=== PATIENT | female | born 1985 | race Caucasian/White ===

== ENCOUNTER 2016-10-13 19:20 | Emergency (ER) | payer MEDICAID ==
--- NOTE | 2016-10-13 19:33 | ER Document Report ---
ED Medical Screen (RME) - General Stated Complaint: VOMITING, DIARRHEA Time seen by provider: 19:33 Mode of Arrival: Ambulatory Information source: Patient Notes: 31-year-old female 14 weeks , has had a normal without any vomiting in her second trimester developed nausea and vomiting since Saturday. Diarrhea started Saturday and has continued today. She feels like her stomach is very sour. There is no vaginal bleeding. No fever. No one else is sick in the family. I have greeted and performed a rapid initial assessment of this patient. A comprehensive ED assessment, evaluation of the patient, analysis of test results , and completion of the medical decision making process will be contacted by additional ED providers. TRAVEL OUTSIDE OF THE [place] IN LAST 30 DAYS: No - Related Data Allergies/Adverse Reactions: No Known Allergies Allergy (Verified 10/13/16 19:38) Past Medical History Past Surgical History: Reports: Hx Breast Surgery - Breast augmentation Physical Exam - Vital signs Vitals: Temp Pulse Resp BP Pulse Ox 98.2 F 88 20 130/84 H 98 10/13/16 19:28 10/13/16 19:28 10/13/16 19:28 10/13/16 19:28 10/13/16 19:28 Course - Vital Signs Vital signs: Temp Pulse Resp BP Pulse Ox 98.2 F 88 20 130/84 H 98 10/13/16 19:28 10/13/16 19:28 10/13/16 19:28 10/13/16 19:28 10/13/16 19:28
[2016-10-13] MEDS ORDERED: NORMAL SALINE 1000 ML 2,000 ML IV ONE (19:37)
[2016-10-13 20:02] LABS: ABSOLUTE BASOPHILS # (AUTO) 0.1 10^3/uL (0.0-0.2); ABSOLUTE EOSINOPHILS # (AUTO) 0.1 10^3/uL (0.0-0.6); ABSOLUTE LYMPHOCYTES (AUTO) 3.3 10^3/uL (0.5-4.7); ABSOLUTE MONOCYTES (AUTO) 0.7 10^3/uL (0.1-1.4); ABSOLUTE NEUT (AUTO) 10.9 10^3/uL (1.7-8.2); BASOPHILS % (AUTO) 0.5 % (0-2); EOSINOPHILS % (AUTO) 0.9 % (0-6); HEMATOCRIT 42.5 % (36.0-47.0); HEMOGLOBIN 14.3 g/dL (12.0-15.5); HGB HCT DIFFERENCE 0.4; LYMPHOCYTES % (AUTO) 21.6 % (13-45); MEAN CORPUSCULAR HEMOGLOBIN 31.9 pg (27.0-33.4); MEAN CORPUSCULAR HGB CONC 33.8 g/dL (32.0-36.0); MEAN CORPUSCULAR VOLUME 94 fl (80-97); MONOCYTES % (AUTO) 4.6 % (3-13); RED CELL DISTRIBUTION WIDTH 12.7 % (11.5-14.0); SEGMENTED NEUTROPHILS % (AUTO) 72.4 % (42-78); WHITE BLOOD COUNT 15.1 10^3/uL (4.0-10.5)
[2016-10-13 20:18] LABS: ALANINE AMINOTRANSFERASE 33 U/L (9-52); ALBUMIN 4.7 g/dL (3.5-5.0); ALKALINE PHOSPHATASE 82 U/L (38-126); ANION GAP 14 (5-19); ASPARTATE AMINO TRANSFERASE 22 U/L (14-36); BILIRUBIN,TOTAL 0.9 mg/dL (0.2-1.3); BLOOD UREA NITROGEN 16 mg/dL (7-20); CALCIUM 10.6 mg/dL (8.4-10.2); CARBON DIOXIDE 22 mmol/L (22-30); CHLORIDE 102 mmol/L (98-107); CREATININE RESULT 0.65 mg/dL (0.52-1.25); GLUCOSE 88 mg/dL (75-110); LIPASE 67.8 U/L (23-300); POTASSIUM 4.3 mmol/L (3.6-5.0); SODIUM 137.9 mmol/L (137-145); TOTAL PROTEIN 7.6 g/dL (6.3-8.2)
[2016-10-13 20:31] LABS: APPEARANCE,URINE SLIGHTLY-CLOUDY; BILIRUBIN,URINE NEGATIVE (NEGATIVE); GLUCOSE, URINE NEGATIVE (NEGATIVE); KETONES,URINE 80 mg/dL (NEGATIVE); LEUKOCYTE ESTERASE,URINE NEGATIVE (NEGATIVE); NITRITE,URINE NEGATIVE (NEGATIVE); PROTEIN,URINE 30 mg/dL (NEGATIVE); URINE SPECIFIC GRAVITY 1.025; UROBILINOGEN,URINE NEGATIVE mg/dL (<2.0)
--- NOTE | 2016-10-13 21:20 | ER Document Report ---
ED GI/ - General Mode of Arrival: Ambulatory Information source: Patient, Relative - TRAVEL OUTSIDE OF THE [place] IN LAST 30 DAYS: No - HPI Patient complains to provider of: Vomiting Associated symptoms: Other - See above <JAIMIE AGUILAR - Last Filed: 10/13/16 21:28> <COURTNEY MELO - Last Filed: 10/14/16 00:39> - General Chief Complaint: Nausea/Vomiting/Diarrhea Stated Complaint: VOMITING, DIARRHEA Notes: Patient is a 31 year old female, at 14 weeks , who presents to the emergency department complaining of vomiting onset 6 days ago. Patient states that she has felt fine this entire up until this past week and has been unable to keep any food down. Patient also complains of nausea, upper abdominal pain, less frequent urination, headache, and diarrhea occurring 3x per day. Patient denies vaginal bleeding, vaginal discharge, burning while urinating, cough, rhinorrhea, fever, and sore throat. Patient reports they received an initial ultrasound and all was normal, her due date is around April 12. Per patient was never this sick with her previous pregnancies. ObGyn: [email or web address] (JAIMIE AGUILAR) - Related Data Allergies/Adverse Reactions: No Known Allergies Allergy (Verified 10/13/16 19:38) Past Medical History - General Information source: Patient - Social History Smoking Status: Never Smoker Family History: Reviewed & Not Pertinent Past Surgical History: Reports: Hx Breast Surgery - Breast augmentation <JAIMIE AGUILAR - Last Filed: 10/13/16 21:28> Review of Systems - Review of Systems Constitutional: denies: Fever EENT: denies: Nose discharge, Throat pain Cardiovascular: No symptoms reported Respiratory: denies: Cough Gastrointestinal: See HPI, Abdominal pain, Diarrhea, Nausea, Vomiting Genitourinary: See HPI, Retention. denies: Burning Female Genitourinary: denies: Vaginal discharge, Vaginal bleeding Musculoskeletal: No symptoms reported Skin: No symptoms reported Hematologic/Lymphatic: No symptoms reported Neurological/Psychological: See HPI, Headaches -: Yes All other systems reviewed and negative <JAIMIE AGIULAR - Last Filed: 10/13/16 21:28> Physical Exam - Vital signs Interpretation: Normal - General General appearance: Appears well, Alert - HEENT Head: Normocephalic, Atraumatic - Respiratory Respiratory status: No respiratory distress Chest status: Nontender Breath sounds: Normal Chest palpation: Normal - Cardiovascular Rhythm: Regular Heart sounds: Normal auscultation Murmur: No - Abdominal Inspection: Normal Distension: No distension Bowel sounds: Normal Tenderness: Nontender Organomegaly: No organomegaly - Extremities General upper extremity: Normal inspection General lower extremity: Normal inspection. No: Edema - Neurological Neuro grossly intact: Yes Cognition: Normal Orientation: AAOx4 Yoandy Coma Scale Eye Opening: Spontaneous Yoandy Coma Scale Verbal: Oriented Yoandy Coma Scale Motor: Obeys Commands Vincent Coma Scale Total: 15 Speech: Normal - Psychological Associated symptoms: Normal affect, Normal mood - Skin Skin Temperature: Warm Skin Moisture: Dry Skin Color: Normal <JAIMIE AGUILAR - Last Filed: 10/13/16 21:28> Course - Laboratory Result Diagrams: 10/13/16 19:45 10/13/16 19:45 <JAIMIE AGUILAR - Last Filed: 10/13/16 21:28> - Laboratory Result Diagrams: 10/13/16 19:45 10/13/16 19:45 <COURTNEY MELO - Last Filed: 10/14/16 00:39> - Re-evaluation Re-evalutation: 10/13/16 21:23 Patient is EGA 14 weeks by ultrasound with nausea and vomiting for the past week unable to keep anything down also with a headache now. Patient's denies any fevers chills or sweats. No cough cold or flulike symptoms. On exam, patient alert and oriented in no acute distress, vital signs are stable patient is afebrile nontoxic appearing. Abdomen is soft and nontender. Urine shows high ketones. Plan to give IV fluids and nausea medication. We'll by mouth challenge after Zofran. 10/13/16 23:20 Nurses were unable to get heart tones and so I took the bedside ultrasound and was able to identify the fetus. heart rate 140, plenty of movement. This is an unofficial ultrasound only to document heart tone. Patient continues to have nausea and has vomited after drinking some water in the ED. Give her Reglan and Benadryl. Pt is getting her second liter of fluids - will reassess. 10/13/16 23:25 10/13/16 23:39 10/14/16 00:29 So far the patient is tolerating the fluids that I just gave her. We're finishing the second bag of fluids and plan will be for her to be discharged home. (COURTNEY MELO) - Vital Signs Vital signs: Temp Pulse Resp BP Pulse Ox 98.2 F 88 20 130/84 H 98 10/13/16 19:28 10/13/16 19:28 10/13/16 19:28 10/13/16 19:28 10/13/16 19:28 (JAIMIE AGUILAR) (COURTNEY MELO) - Laboratory Laboratory results interpreted by me: 10/13/16 10/13/16 10/13/16 19:45 19:45 19:45 WBC 15.1 H Absolute Neutrophils 10.9 H Calcium 10.6 H Urine Protein 30 H Urine Ketones 80 H (JAIMIE AGUILAR) (COURTNEY MELO) Discharge <JAIMIE AGUILAR - Last Filed: 10/13/16 21:28> <COURTNEY MELO - Last Filed: 10/14/16 00:39> - Discharge Clinical Impression: Hyperemesis gravidarum Condition: Stable Disposition: HOME, SELF-CARE Instructions: Vomiting ([facility]) Additional Instructions: Drink plenty fluids to stay well hydrated. Nausea medication as needed. Call your OB tomorrow and follow-up on Saturday. Return for fevers, vomiting so you can 't keep down fluids, or other worsening or concerning symptoms. Prescriptions: Metoclopramide HCl [Reglan 10 mg Tablet] 1 tab PO ASDIR PRN #25 tablet PRN Reason: Ondansetron [Zofran Odt 4 mg Tablet] 1 - 2 tab PO Q4H PRN #15 tab.rapdis PRN Reason: For Nausea/Vomiting Scribe Attestation: 10/13/16 23:40 I personally performed the services described in the documentation, reviewed and edited the documentation which was dictated to the scribe in my presence, and it accurately records my words and actions. (COURTNEY MELO) Scribe Documentation - Scribe Written by Scribe:: ioana Walsh, 10/13/16, [id number] acting as scribe for :: Bella <JAIMIE AGUILAR - Last Filed: 10/13/16 21:28>
[2016-10-13] MEDS ORDERED: ONDANSETRON HCL INJ/PF 4 MG/2 ML SDV IV ONE (21:22)
[2016-10-13] MEDS ORDERED: METOCLOPRAMIDE HCL INJ/PF 10 MG/2 ML SDV ONE (23:09)
[2016-10-13] MEDS ORDERED: DIPHENHYDRAMINE HCL 50 MG/ML VIAL ONE (23:10)
[2016-10-13] MEDS ORDERED: METOCLOPRAMIDE HCL INJ/PF 10 MG/2 ML SDV IV ONE (23:22)
[2016-10-13] MEDS ORDERED: DIPHENHYDRAMINE HCL 50 MG/ML VIAL IV ONE (23:23)
[2016-10-14] MEDS ORDERED: ONDANSETRON ODT 4 MG TAB (6 TAB/DSPK) PO PRN (00:26)
[2016-10-14 01:13] VITALS: BP 105/52
== END 2016-10-14 01:13 | disposition home or self-care (01) ==
LOC: ER 19:20
DX: O21.0 Mild hyperemesis gravidarum (principal); O26.892 Other specified pregnancy related conditions, second trimester; R10.10 Upper abdominal pain, unspecified; R51 Headache; R33.9 Retention of urine, unspecified; R19.7 Diarrhea, unspecified; Z3A.14 14 weeks gestation of pregnancy
CPT/HCPCS: 99283; 96361; 96374; 96375; 36415; 87086; 83690; 85025; 80053; 81001; J1200; J2765; J2405; J7030

== ENCOUNTER 2017-01-18 14:11 | Outpatient (CLI) | payer MEDICAID ==
[2017-01-18 15:22] LABS: APPEARANCE,URINE CLEAR; BILIRUBIN,URINE NEGATIVE (NEGATIVE); GLUCOSE, URINE NEGATIVE (NEGATIVE); KETONES,URINE NEGATIVE (NEGATIVE); LEUKOCYTE ESTERASE,URINE NEGATIVE (NEGATIVE); NITRITE,URINE NEGATIVE (NEGATIVE); PROTEIN,URINE NEGATIVE (NEGATIVE); URINE SPECIFIC GRAVITY 1.003; UROBILINOGEN,URINE NEGATIVE mg/dL (<2.0)
[2017-01-18 15:37] LABS: URINE BARBITURATES SCREEN NEGATIVE; URINE METHADONE SCREEN NEGATIVE; URINE OPIATES LOW NEGATIVE; URINE PHENCYCLIDINE SCREEN NEGATIVE
[2017-01-18 15:40] LABS: ABSOLUTE BASOPHILS # (AUTO) 0.1 10^3/uL (0.0-0.2); ABSOLUTE EOSINOPHILS # (AUTO) 0.2 10^3/uL (0.0-0.6); ABSOLUTE LYMPHOCYTES (AUTO) 2.5 10^3/uL (0.5-4.7); ABSOLUTE MONOCYTES (AUTO) 0.9 10^3/uL (0.1-1.4); ABSOLUTE NEUT (AUTO) 12.4 10^3/uL (1.7-8.2); BASOPHILS % (AUTO) 0.4 % (0-2); HEMATOCRIT 36.5 % (36.0-47.0); HEMOGLOBIN 12.1 g/dL (12.0-15.5); HGB HCT DIFFERENCE -0.2; LYMPHOCYTES % (AUTO) 15.8 % (13-45); MEAN CORPUSCULAR HEMOGLOBIN 32.1 pg (27.0-33.4); MEAN CORPUSCULAR HGB CONC 33.2 g/dL (32.0-36.0); MEAN CORPUSCULAR VOLUME 97 fl (80-97); MONOCYTES % (AUTO) 5.4 % (3-13); RED BLOOD COUNT 3.78 10^6/uL (3.72-5.28); RED CELL DISTRIBUTION WIDTH 13.9 % (11.5-14.0); SEGMENTED NEUTROPHILS % (AUTO) 77.4 % (42-78)
[2017-01-18 19:53] LABS: TOTAL RBC COUNT 2034; VOL OF FETOMATERNAL HEMORRHAGE 0 ML (0)
[2017-01-18 19:54] LABS: TYPE IN FILE? TYPE IN FILE
== END 2017-01-18 16:45 | disposition home or self-care (01) ==
LOC: LC 14:11
PROVIDERS: ATTEND Specialist
PROC: 4A1HXCZ Monitoring of Products of Conception, Cardiac Rate, External Approach (ICD-10-PCS; principal; 2017-01-18)
DX: Z36 Encounter for antenatal screening of mother (principal)
CPT/HCPCS: 36415; 76815; 80307; 81001; 85025; 85362; 85384; 85460

== ENCOUNTER 2017-03-08 15:36 | Outpatient (CLI) | payer MEDICAID ==
--- NOTE | 2017-03-08 16:23 | Non Stress Test Report ---
Non Stress Test Datetime Report Generated by CPN: 03/08/2017 16:23 DEMOGRAPHIC EGA NST: 35.0 INDICATION Indication for Study: Decreased Movement; Ordered by Provider MONITORING Monitor Explained: Monitor Explained; Test Explained; Patient Verbalized Understanding Time on Monitor: 03/08/2017 15:55 Time off Monitor: 03/08/2017 16:20 NST Duration: 25 NST INTERVENTIONS NST Interventions: PO Hydration; Reposition Patient Physician Notified NST: H Kalyan CNM BABY A: [id number] BABY A Movement : Present Contraction Frequency : occassional FHR Baseline : 130 Accelerations : 15X15 Decelerations : None Variability : Moderate 6-25bpm NST Review: Meets Criteria for Reactive NST NST Review and Verified By : Ej Carvajal RN NST Results: Reactive NST REPORT Report Trigger: Send Report
== END 2017-03-08 16:31 | disposition home or self-care (01) ==
LOC: LC 15:36
PROVIDERS: ATTEND Student in an Organized Health Care Education/Training Program
PROC: 4A1HXCZ Monitoring of Products of Conception, Cardiac Rate, External Approach (ICD-10-PCS; principal; 2017-03-08)
DX: O36.8130 Decreased fetal movements, third trimester, not applicable or unspecified (principal); Z3A.35 35 weeks gestation of pregnancy
CPT/HCPCS: 59025

== ENCOUNTER 2017-04-06 02:33 | Inpatient (IN) | payer MEDICAID ==
[2017-04-06] MEDS ORDERED: DINOPROSTONE 10 MG VAGINAL INSERT.SR PV PRN (02:48)
[2017-04-06] MEDS ORDERED: PENICILLIN G-K 5 MILLION UNIT VIAL IV PRN (03:20)
[2017-04-06] MEDS ORDERED: RINGERS SOLUTION,LACTATED 300 ML IV ONE (03:30)
[2017-04-06] MEDS ORDERED: PENICILLIN G POTASSIUM 5,000,000 UNIT in DEXTROSE 5%-WATER 100 ML IV ONE (03:30)
[2017-04-06 03:50] LABS: APPEARANCE,URINE CLEAR; BILIRUBIN,URINE NEGATIVE (NEGATIVE); GLUCOSE, URINE NEGATIVE (NEGATIVE); KETONES,URINE TRACE mg/dL (NEGATIVE); LEUKOCYTE ESTERASE,URINE NEGATIVE (NEGATIVE); NITRITE,URINE NEGATIVE (NEGATIVE); PROTEIN,URINE NEGATIVE (NEGATIVE); URINE SPECIFIC GRAVITY 1.004; UROBILINOGEN,URINE NEGATIVE mg/dL (<2.0)
[2017-04-06] MEDS: RINGERS SOLUTION,LACTATED 1,000 ML IV PRN (03:52)
[2017-04-06 03:54] LABS: ABSOLUTE BASOPHILS # (AUTO) 0.1 10^3/uL (0.0-0.2); ABSOLUTE EOSINOPHILS # (AUTO) 0.1 10^3/uL (0.0-0.6); ABSOLUTE LYMPHOCYTES (AUTO) 3.4 10^3/uL (0.5-4.7); ABSOLUTE MONOCYTES (AUTO) 0.7 10^3/uL (0.1-1.4); ABSOLUTE NEUT (AUTO) 8.4 10^3/uL (1.7-8.2); BASOPHILS % (AUTO) 0.4 % (0-2); EOSINOPHILS % (AUTO) 0.9 % (0-6); HEMATOCRIT 38.2 % (36.0-47.0); HEMOGLOBIN 12.8 g/dL (12.0-15.5); HGB HCT DIFFERENCE 0.2; LYMPHOCYTES % (AUTO) 26.9 % (13-45); MEAN CORPUSCULAR HEMOGLOBIN 32.5 pg (27.0-33.4); MEAN CORPUSCULAR HGB CONC 33.4 g/dL (32.0-36.0); MEAN CORPUSCULAR VOLUME 97 fl (80-97); MONOCYTES % (AUTO) 5.7 % (3-13); RED BLOOD COUNT 3.93 10^6/uL (3.72-5.28); RED CELL DISTRIBUTION WIDTH 13.9 % (11.5-14.0); SEGMENTED NEUTROPHILS % (AUTO) 66.1 % (42-78); WHITE BLOOD COUNT 12.6 10^3/uL (4.0-10.5)
[2017-04-06] MEDS ORDERED: DINOPROSTONE 10 MG VAGINAL INSERT.SR ONE (03:57)
[2017-04-06 04:06] LABS: URINE BARBITURATES SCREEN NEGATIVE; URINE METHADONE SCREEN NEGATIVE; URINE OPIATES LOW NEGATIVE; URINE PHENCYCLIDINE SCREEN NEGATIVE
[2017-04-06] MEDS ORDERED: ZOLPIDEM TARTRATE 5 MG TABLET ONE (04:11)
[2017-04-06] MEDS ORDERED: ZOLPIDEM TARTRATE 5 MG TABLET PO ONE (04:30)
[2017-04-06] MEDS ORDERED: PENICILLIN G POTASSIUM 2,500,000 UNIT in DEXTROSE 5%-WATER 50 ML IV SCH (08:00)
[2017-04-06] MEDS ORDERED: MISOPROSTOL 0.1 MG TABLET ONE (08:23)
[2017-04-06] MEDS ORDERED: OXYTOCIN/NORMAL SALINE 20 UNIT/1,000 ML RTUINJ ONE (13:59)
[2017-04-06] MEDS: OXYTOCIN/NORMAL SALINE 20 UNIT/1,000 ML RTUINJ IV PRN (14:14)
[2017-04-06] MEDS ORDERED: PENICILLIN G-K 5 MILLION UNIT VIAL ONE (14:52)
[2017-04-06] MEDS ORDERED: LIDOCAINE 1% INJ-PF (10 MG/ML) 30 ML SDV ONE (17:22)
[2017-04-06] MEDS ORDERED: MISOPROSTOL 0.2 MG TABLET ONE (17:22)
[2017-04-06] MEDS ORDERED: ACETAMINOPHEN WITH CODEINE #3 TABLET ONE (17:58)
[2017-04-06] MEDS ORDERED: MEASLES,MUMPS&RUBELLA VACC/PF 0.5 ML VIAL SUBCUT PRN (18:15)
[2017-04-06] MEDS ORDERED: ACETAMINOPHEN WITH CODEINE #3 TABLET PO PRN (18:15)
[2017-04-06] MEDS ORDERED: DIBUCAINE 1% OINTMENT 28 GM TP PRN (18:15)
[2017-04-06] MEDS ORDERED: DIPH/PERTUSS(ACELL)/TETANUS VAC/PF 0.5 ML SYR (>=10YO) IM PRN (18:15)
[2017-04-06] MEDS ORDERED: BENZOCAINE/MENTHOL AEROSOL SPRAY 56 ML TOP PRN (18:15)
[2017-04-06] MEDS ORDERED: OXYTOCIN/NORMAL SALINE 20 UNIT/1,000 ML RTUINJ IV PRN (18:15)
[2017-04-06] MEDS ORDERED: ZOLPIDEM TARTRATE 5 MG TABLET PO PRN (18:15)
--- NOTE | 2017-04-06 20:33 | Admission Physical ---
Datetime Report Generated by CPN: 04/06/2017 20:33 CURRENT ADMISSION Chief Complaint: Scheduled Induction of Labor Indication for Induction- Other: gdm on glyburide Admit Plan: Admit to Unit; Initiate Labor Induction Protocol ALLERGIES Medication Allergies: No Medication Allergies: No Known Allergies (04/06/2017) Medication Allergies: No Known Allergies (10/13/2016) Latex: No Latex Allergies OBSTETRICAL HISTORY EDC: 04/12/2017 00:00 : 4 Para: 2 Term: 2 : 0 SAB: 1 IAB: 0 Ectopic: 0 Livin Cesareans: 0 VBACs: 0 Multiple Births: 0 Gestational Diabetes: Yes Rh Sensitization: No Incompetent Cervix: No SHAHRAM: No Infertility: No ART Treatment: No Uterine Anomaly: No IUGR: No Hx Previous C/S: No Macrosomia: Yes Hx Loss/Stillborn: No PIH: No Hx : No Placenta Previa/Abruption: No Depression/PP Depression: No PTL/PROM: No Post Hemorrhage: No Current Procedures: Ultrasound; NST Obstetrical History Comments: G1 - SAB G2 - G3 - 2015 7lb 3oz G4- current - GDM, poly 26.55, macrosomia SEE RECORDS Alcohol: No Marijuana : No Cocaine: No Other Illicit Drugs: No Cigarettes: Never Smoker. [id number] MEDICAL HISTORY Diabetes: No Blood Transfusion: No Pulmonary Disease (Asthma, TB): No Breast Disease: No Hypertension: No Senior Sales Engineer Surgery: No Heart Disease: No Hosp/Surgery: Yes Autoimmune Disorder: No Anesthetic Complications: No Kidney Disease: No Abnormal Pap Smear: No Neuro/Epilepsy: No Psychiatric Disorders: No Other Medical Diseases: No Hepatitis/Liver Disease: No Significant Family History: No Varicosities/Phlebitis: No Trauma/Violence : No Thyroid Dysfunction: No Medical History Comments: deviated septum surgery 2014 INFECTIOUS HISTORY Gonorrhea: No Genital Herpes: No Chlamydia: No Tuberculosis: No Syphilis: No Hepatitis: No HIV/AIDS Exposure: No Rash or Viral Illness: No HPV: Yes PHYSICAL EXAM General: Normal HEENT: Normal Neurologic: Normal Thyroid: Normal Heart: Normal Lungs: Normal Breast: Deferred Back: Normal Abdomen: Normal Genitourinary Exam: Normal Extremities: Normal DTRs: Normal Pelvic Type: Adequate Vital Signs: Reviewed VAGINAL EXAM Dilatation: 1 Effacement: 0 Station: -2 MEMBRANES Pooling: Negative Membranes: Intact FETUS A EGA: 39.1 Monitoring: External US FHR- Baseline: 140 Accelerations: 15X15 FHR Category: Category I Admit Comment: est wt is 4559. shoulder dystocia risk discussed and c section offered and declined by pt. PLANS FOR LABOR AND DELIVERY Labor and Delivery: None Pain Management: Natural Feeding Preference: Breast Benefit of Breast Feed Discussed: Yes Circumcision: Yes INFORMED CONSENT Signature: with User ID: [email or web address]
[2017-04-06] MEDS: PENICILLIN G-K 5 MILLION UNIT VIAL IV SCH (21:02)
[2017-04-06] MEDS: IBUPROFEN 800 MG TABLET PO SCH (21:20)
[2017-04-07] MEDS: PENICILLIN G-K 5 MILLION UNIT VIAL IV SCH ×3 (00:03→09:07)
[2017-04-07] MEDS: IBUPROFEN 800 MG TABLET PO SCH ×3 (05:54→22:52)
[2017-04-07 07:37] LABS: HEMATOCRIT 36.4 % (36.0-47.0); HEMOGLOBIN 12.3 g/dL (12.0-15.5); HGB HCT DIFFERENCE 0.5; MEAN CORPUSCULAR HEMOGLOBIN 32.8 pg (27.0-33.4); MEAN CORPUSCULAR HGB CONC 33.7 g/dL (32.0-36.0); MEAN CORPUSCULAR VOLUME 97 fl (80-97); RED BLOOD COUNT 3.74 10^6/uL (3.72-5.28); RED CELL DISTRIBUTION WIDTH 14.4 % (11.5-14.0); WHITE BLOOD COUNT 14.5 10^3/uL (4.0-10.5)
[2017-04-07] MEDS: FERROUS SULFATE 325 MG TABLET PO SCH ×2 (09:34→17:25)
[2017-04-07] MEDS: ACETAMINOPHEN WITH CODEINE #3 TABLET PO PRN ×3 (09:34→22:57)
[2017-04-07] MEDS: SENNOSIDES/DOCUSATE 8.6-50 MG 1 EACH TABLET PO SCH (09:35)
[2017-04-07] MEDS: DOCUSATE SODIUM 100 MG CAPSULE PO SCH ×2 (09:35→17:25)
[2017-04-07] MEDS: PRENATAL VITAMIN W-O CA NO5/FE FUMARATE/FA CAPSULE PO SCH (09:40)
--- NOTE | 2017-04-07 09:54 | PDOC PROGRESS REPORT ---
Subjective-OB Subjective: Post Delivery Day: 32 year old. Denies any needs at this time Doing well, no c/o, ambulating, , hsb at BS Physical Exam (OB) Vital Signs: Temp Pulse Resp BP Pulse Ox 97.9 F 80 15 113/63 100 04/07/17 08:26 04/07/17 08:26 04/07/17 08:26 04/07/17 08:26 04/07/17 08:26 Intake & Output 04/06/17 04/07/17 04/08/17 06:59 06:59 06:59 Weight 90.15 kg - PIH/Pre-Eclampsia Clonus: Negative - Lochia Lochia Amount: Scant < 10 ml Lochia Color: Rubra/Red - Abdomen Description: Tender Hernia Present: No Fundal Description: Firm, Midline Fundal Height: u/u - u/2 Objective-Diagnostic Laboratory: 04/07/17 07:19 04/07/17 07:19 WBC 14.5 H RBC 3.74 Hgb 12.3 Hct 36.4 MCV 97 MCH 32.8 MCHC 33.7 RDW 14.4 H Plt Count 205 Assessment and Plan(PN) - Assessment and Plan (1) Vaginal delivery Is this a current diagnosis for this admission?: Yes - Time Spent with Patient Time with patient: Less than 15 minutes Medications reviewed and adjusted accordingly: Yes - Disposition Anticipated Discharge: Home Within: within 24 hours
[2017-04-07] MEDS ORDERED: HYDROCORTISONE 1% CREAM 28.35 GM TP PRN (13:14)
[2017-04-08] MEDS: RINGERS SOLUTION,LACTATED 1,000 ML IV PRN (00:21)
[2017-04-08] MEDS: OXYTOCIN/NORMAL SALINE 20 UNIT/1,000 ML RTUINJ IV PRN (00:21)
[2017-04-08] MEDS: IBUPROFEN 800 MG TABLET PO SCH ×2 (05:05→14:16)
--- NOTE | 2017-04-08 08:58 | PDOC DISCHARGE SUMMARY ---
Final Diagnosis Discharge Date: 04/08/17 Discharge Data - Discharge Medication Home Medications: Vit/Iron Fumarate/FA [ Tablet] 1 tab PO DAILY 04/21/16 Docusate Sodium [Colace 100 mg Capsule] 100 mg PO BID #60 capsule 04/08/17 Ibuprofen [Motrin 800 mg Tablet] 800 mg PO Q8 #60 tablet 04/08/17 Gestational Age: 39 Reason(s) for Admission: Induction of Labor, Gestional Diabetes, Other - polyhydramnios Procedures: NST Intrapartum Procedure(s): Spontaneous Vaginal Delivery - Raysal Data Baby 1 Male at 1 minute: 7 at 5 minutes: 8 Weight: 3.799 kg Home with Mother: Yes Complications: No - Diagnosis Test Laboratory: Temp Pulse Resp BP Pulse Ox 97.3 F 73 16 106/60 99 04/08/17 07:23 04/08/17 07:23 04/08/17 07:23 04/08/17 07:23 04/08/17 07:23 04/06/17 04/06/17 04/07/17 02:46 03:28 07:19 RBC 3.93 3.74 Hgb 12.8 12.3 Hct 38.2 36.4 Urine Opiates Screen NEGATIVE - Discharge information/Instructions Discharge Activity: Activity As Tolerated, Pelvic Rest, No tub bath Discharge Diet: Regular Disposition: HOME, SELF-CARE Follow up with: [facility] in: 4, Weeks
[2017-04-08 09:31] VITALS: BP 108/69
[2017-04-08] MEDS: DOCUSATE SODIUM 100 MG CAPSULE PO SCH (10:57)
[2017-04-08] MEDS: FERROUS SULFATE 325 MG TABLET PO SCH (10:57)
[2017-04-08] MEDS: PRENATAL VITAMIN W-O CA NO5/FE FUMARATE/FA CAPSULE PO SCH (10:57)
[2017-04-08] MEDS: SENNOSIDES/DOCUSATE 8.6-50 MG 1 EACH TABLET PO SCH (10:57)
--- NOTE | 2017-04-08 14:14 | Delivery Summary ---
Del Sum A-C Datetime Report Generated by CPN: 04/08/2017 14:14 DELIVERY PERSONNEL DELIVERY PERSONNEL: [phone] DELIVERY PERSONNEL: [phone] Delivery Doctor:: Lucía Alonzo MD Labor and Delivery Nurse:: Renetta Perez RN Nursery Nurse:: Courtney Figueroa RN Nursery Nurse:: Marla Leung RN Additional Personnel: : Padma Hamilton RN MATERNAL INFORMATION Delivery Anesthesia: None Medications After Delivery: Pitocin Bolus-Please Comment Meds After Delivery Comment: Pitocin 20 units in 1000mL NS Estimated Blood Loss (ml): 200 Estimated Blood Loss (ml): 200 Maternal Complications: None LABOR SUMMARY EDC: 04/12/2017 00:00 No. Babies in Womb: 1 Labor Anesthesia: None LABOR INFORMATION Reason for Induction: Maternal Diabetes; Polyhydramnios Onset of Labor: 04/06/2017 16:13 Complete Dilatation: 04/06/2017 17:34 Cervical Ripening Agents: Cytotec @ 50 mcg PO Other Ripening Agents: cervidil/cytotec Oxytocin: Induction Group B Beta Strep: positive Antibiotics # of Doses: 1 Antibiotics Time of Last Dose: 1457 Name of Antibiotic Given: PCN Steroids Given: None Reason Steroids Not Administered: Not Applicable MEMBRANES Membranes Rupture Method: Artificial Rupture of Membranes: 04/06/2017 17:34 Length of Rupture (hr): 0.05 Amniotic Fluid Color: Clear Amniotic Fluid Amount: Moderate STAGES OF LABOR Stage 1 hr: 1 Stage 1 min: 21 Stage 2 hr: 0 Stage 2 min: 3 Stage 3 hr: 0 Stage 3 min: 8 Total Time in Labor hr: 1 Total Time in Labor min: 32 VAGINAL DELIVERY Episiotomy: None Laceration Extension: N/A Laceration Type: None Laceration Repair: Not Applicable BABY A INFORMATION Infant Delivery Date/Time: 04/06/2017 17:37 Method of Delivery: Vaginal Method of Delivery: Vaginal Born in Route : No : N/A Forceps: N/A Vacuum Extraction: N/A Shoulder Dystocia : No PRESENTATION/POSITION BABY A Presentation: Unable to Assess Breech Presentation: N/A PLACENTA INFORMATION BABY A Placenta Delivery Time : 04/06/2017 17:45 Placenta Method of Delivery: Spontaneous Placenta Status: Delivered SCORES BABY A Heart Rate 1 min: >100 bpm Resp Effort 1 min: Slow, Irregular Reflex Irritability 1 min: Cough or Sneeze or Pulls Away Muscle Tone 1 min: Active Motion Color 1 min: Blue/Pale Resuscitation Effort 1 min: Tactile Stimulation SCORE 1 MIN: 7 Heart Rate 5 min: >100 bpm Resp Effort 5 min: Slow, Irregular Reflex Irritability 5 min: Cough or Sneeze or Pulls Away Muscle Tone 5 min: Active Motion Color 5 min: Body [place], Extremities Blue Resuscitation Effort 5 min: Tactile Stimulation SCORE 5 MIN: 8 INFORMATION BABY A Gestational Age at Delivery: 39.1 Gestational Status: Full Term- 39- 40.6 Weeks Infant Outcome : Liveborn Condition : Stable Sex: Male Infant Sex: Male IDENTIFICATION BABY A Infant Verification Date/Time: 04/06/2017 18:11 ID Band Number: [id number] Mother's Name Verified: Yes Infant RN Verifying : B Baidy RN/ R Noy RN WEIGHT/LENGTH BABY A Infant Birthweight (gm): 3810 Weight (lb): 8 Infant Weight (oz): 6 Length (in): 21.00 Infant Length (cm): 53.34 CORD INFORMATION BABY A No. Cord Vessels: 3 Nuchal Cord : N/A Cord Blood Taken: Yes-For Eval (Mom's Blood Type - or O+) Suction: Mouth; Nose ASSESSMENT BABY A Infant Complications: None Physical Findings at Delivery: Within Normal Limits Infant Respirations: Appears Normal Skin to Skin: Yes Urban Sociologist/ALS Called : No Infant Care By: Sarahi Figueroa RN Transferred To: Remains with Mother SIGNATURES Signature: with User ID: [email or web address]
== END 2017-04-08 18:20 | disposition home or self-care (01) | DRG 775 ==
LOC: LR 02:33 → 2S 20:32
PROVIDERS: ADMIT Obstetrics & Gynecology; ATTEND Obstetrics & Gynecology
PROC: 10E0XZZ Delivery of Products of Conception, External Approach (ICD-10-PCS; principal; 2017-04-06)
PROC: 3E033VJ Introduction of Other Hormone into Peripheral Vein, Percutaneous Approach (ICD-10-PCS; 2017-04-06)
PROC: 10907ZC Drainage of Amniotic Fluid, Therapeutic from Products of Conception, Via Natural or Artificial Opening (ICD-10-PCS; 2017-04-06)
PROC: 4A1HXCZ Monitoring of Products of Conception, Cardiac Rate, External Approach (ICD-10-PCS; 2017-04-06)
DX: O24.429 Gestational diabetes mellitus in childbirth, unspecified control (principal); O40.3XX0 Polyhydramnios, third trimester, not applicable or unspecified; O36.63X0 Maternal care for excessive fetal growth, third trimester, not applicable or unspecified; O66.0 Obstructed labor due to shoulder dystocia; O99.824 Streptococcus B carrier state complicating childbirth; Z3A.39 39 weeks gestation of pregnancy; Z37.0 Single live birth
CPT/HCPCS: 36415; 80307; 81005; 82962; 85025; 85027; 86592; 86850; 86900; 86901; J2540; J2590; J3490

== ENCOUNTER 2018-03-28 19:33 | Emergency (ER) | payer MEDICAID ==
--- NOTE | 2018-03-28 20:22 | ER Document Report ---
ED Medical Screen (RME) - General Chief Complaint: Flank Pain Stated Complaint: URINATION AND BACK PAIN Time Seen by Provider: 03/28/18 20:20 Mode of Arrival: Ambulatory Information source: Patient TRAVEL OUTSIDE OF THE [place] IN LAST 30 DAYS: No - HPI Patient complains to provider of: R flank pain; dysuria Onset: Yesterday - pt with freauent UTI's with c/o dysuria and R flank pain for the past 1-2 days - Related Data Allergies/Adverse Reactions: No Known Allergies Allergy (Verified 04/06/17 03:12) Past Medical History - Social History Chew tobacco use (# tins/day): No Frequency of alcohol use: None Drug Abuse: None Renal/ Medical History: Denies: Hx Peritoneal Dialysis Past Surgical History: Reports: Hx Breast Surgery - Breast augmentation Physical Exam - Vital signs Vitals: Temp Pulse Resp BP Pulse Ox 98.4 F 85 18 122/72 100 03/28/18 19:43 03/28/18 19:43 03/28/18 19:43 03/28/18 19:43 03/28/18 19:43 Course - Vital Signs Vital signs: Temp Pulse Resp BP Pulse Ox 98.4 F 85 18 122/72 100 03/28/18 19:43 03/28/18 19:43 03/28/18 19:43 03/28/18 19:43 03/28/18 19:43 Doctor's Discharge - Discharge Referrals: TEE EM MD [Primary Care Provider] - Follow up as needed
[2018-03-28 21:01] LABS: APPEARANCE,URINE CLOUDY; BILIRUBIN,URINE NEGATIVE (NEGATIVE); COLOR,URINE YELLOW; GLUCOSE, URINE NEGATIVE (NEGATIVE); KETONES,URINE NEGATIVE (NEGATIVE); LEUKOCYTE ESTERASE,URINE MODERATE (NEGATIVE); NITRITE,URINE NEGATIVE (NEGATIVE); PROTEIN,URINE 30 mg/dL (NEGATIVE); URINE SPECIFIC GRAVITY 1.019; UROBILINOGEN,URINE NEGATIVE mg/dL (<2.0)
[2018-03-28] MEDS ORDERED: CEPHALEXIN 500 MG CAPSULE PO ONE (21:23)
--- NOTE | 2018-03-28 21:23 | ER Document Report ---
ED General - General Chief Complaint: Flank Pain Stated Complaint: URINATION AND BACK PAIN Time Seen by Provider: 03/28/18 20:20 Mode of Arrival: Ambulatory Notes: Patient is a 33 year old female without chronic medical problems, has a history of recurrent urinary tract infections who presents with 2-3 days of dysuria, urinary frequency and right flank pain. The patient states that she also felt hot last evening and woke up sweating. She has not had a recorded fever at home. She describes the pain in her flank is a dull, throbbing, constant pain. Nothing improves or worsens her symptoms. She states that this does feel somewhat similar to when she has had urinary tract infections in the past. She denies any prior history of kidney stones. She has not seen her general doctor regarding today's concerns. She has not had any vomiting, vaginal bleeding or vaginal discharge. TRAVEL OUTSIDE OF THE [place] IN LAST 30 DAYS: No - Related Data Allergies/Adverse Reactions: No Known Allergies Allergy (Verified 04/06/17 03:12) Past Medical History - General Information source: Patient - Social History Smoking Status: Never Smoker Chew tobacco use (# tins/day): No Frequency of alcohol use: None Drug Abuse: None Lives with: Spouse/Significant other Family History: Reviewed & Not Pertinent Patient has suicidal ideation: No Patient has homicidal ideation: No Renal/ Medical History: Denies: Hx Peritoneal Dialysis Past Surgical History: Reports: Hx Breast Surgery - Breast augmentation Review of Systems - Review of Systems Notes: Constitutional: Negative for fever. HENT: Negative for sore throat. Eyes: Negative for visual changes. Cardiovascular: Negative for chest pain. Respiratory: Negative for shortness of breath. Gastrointestinal: Positive for right flank pain Genitourinary: Positive for dysuria. Musculoskeletal: Negative for back pain. Skin: Negative for rash. Neurological: Negative for headaches, weakness or numbness. 10 point ROS negative except as marked above and in HPI. Physical Exam - Vital signs Vitals: Temp Pulse Resp BP Pulse Ox 98.4 F 85 18 122/72 100 03/28/18 19:43 03/28/18 19:43 03/28/18 19:43 03/28/18 19:43 03/28/18 19:43 Interpretation: Normal Notes: PHYSICAL EXAMINATION: GENERAL: Well-appearing, well-nourished and in no acute distress. HEAD: Atraumatic, normocephalic. EYES: Pupils equal round and reactive to light, extraocular movements intact, sclera anicteric, conjunctiva are normal. ENT: nares patent, oropharynx clear without exudates. Moderately dry mucous membranes. NECK: Normal range of motion, supple without lymphadenopathy LUNGS: Breath sounds clear to auscultation bilaterally and equal. No wheezes rales or rhonchi. HEART: Regular rate and rhythm without murmurs ABDOMEN: Soft, right CVA tenderness present, abdomen otherwise nontender, normoactive bowel sounds. No guarding, no rebound. No masses appreciated. EXTREMITIES: Normal range of motion, no pitting or edema. No cyanosis. NEUROLOGICAL: No focal neurological deficits. Moves all extremities spontaneously and on command. PSYCH: Normal mood, normal affect. SKIN: Warm, Dry, normal turgor, no rashes or lesions noted. Course - Re-evaluation Re-evalutation: 03/28/18 21:21 Presentation is most consistent with acute pyelonephritis. Laboratories do demonstrate a large amount of white blood cells in the urine as well as bacteria. CT obtained prior to my assessment does not show any evidence of an acute kidney stone. CVA tenderness is present on exam. I do not suspect an acute appendicitis, biliary pathology, pancreatitis, intra-abdominal abscess, or tubo-ovarian abscess based on history and examination. Culture has been sent. The patient has been started on cephalexin. Vitals otherwise within normal limits and do not suggest sepsis. At this time will discharge with return precautions and follow-up recommendations. Verbal discharge instructions given a the bedside and opportunity for questions given. Medication warnings reviewed. Patient is in agreement with this plan and has verbalized understanding of return precautions and the need for primary care follow-up in the next 24-72 hours. - Vital Signs Vital signs: Temp Pulse Resp BP Pulse Ox 99.1 F 92 18 120/62 97 03/28/18 22:10 03/28/18 22:10 03/28/18 22:10 03/28/18 22:10 03/28/18 22:10 - Laboratory Laboratory results interpreted by me: 03/28/18 20:38 Urine Protein 30 H Urine Blood LARGE H Ur Leukocyte Esterase MODERATE H - Diagnostic Test Radiology reviewed: Reports reviewed Discharge - Discharge Clinical Impression: Pyelonephritis, Right flank pain Condition: Good Disposition: HOME, SELF-CARE Additional Instructions: You have been diagnosed with a condition called pyelonephritis which is an infection involving your kidneys and bladder. You have been given a dose of antibiotics here in the emergency department to help begin to treat this infection. Your also being sent home on antibiotics. Please start taking these later on today when you fill the prescription. Complete the course even if you feel better. Please return if you have persistent vomiting, pass out, have worsening pain, become unable to tolerate fluids, or have any other symptoms that are concerning to you. Please follow-up with your primary care physician in the next 24-48 hours. Prescriptions: Cephalexin Monohydrate [Keflex 500 mg Capsule] 500 mg PO Q6H 7 Days capsule Referrals: TEE EM MD [ACTIVE STAFF] - Follow up as needed
--- NOTE | 2018-03-28 21:28 | RADIOLOGY REPORT (SQ) ---
EXAM DESCRIPTION: CT LTD RENAL STONE PROTOCOL ON COMPLETED DATE/TIME: 03/28/2018 9:11 pm REASON FOR STUDY: R flank pain COMPARISON: None. TECHNIQUE: CT scan of the abdomen and pelvis performed without intravenous or oral contrast. Images reviewed with lung, soft tissue, and bone windows. Reconstructed coronal and sagittal MPR images revi ewed. All images stored on PACS. All CT scanners at this facility use dose modulation, iterative reconstruction, and/or weight based d osing when appropriate to reduce radiation dose to as low as reasonably achievable (ALARA). [facility]: Dose Right [facility]: CareDose [facility]: Dose Right [facility]: Teradose 4D [facility]: [employer] RADIATION DOSE: CT Rad equipment meets quality standard of care and radiation dose reduction techniq ues were employed. CTDIvol: 7.0 mGy. DLP: 375 mGy-cm.mGy. LIMITATIONS: None. FINDINGS: LOWER CHEST: No significant findings. No nodules or infiltrates. NON-CONTRASTED LIVER, SPLEEN, ADRENALS: Evaluation limited by lack of IV contrast. No identified sign ificant masses. PANCREAS: No masses. No peripancreatic inflammatory changes. GALLBLADDER: No identified stones by CT criteria. No inflammatory changes to suggest cholecystitis. RIGHT KIDNEY AND URETER: No suspicious masses. Assessment limited by lack of IV contrast. No signif icant calcifications. No hydronephrosis or hydroureter. LEFT KIDNEY AND URETER: No suspicious masses. Assessment limited by lack of IV contrast. No signifi cant calcifications. No hydronephrosis or hydroureter. AORTA AND RETROPERITONEUM: No aneurysm. No retroperitoneal masses or adenopathy. BOWEL AND PERITONEAL CAVITY: No obvious masses or inflammatory changes. No free fluid. APPENDIX: Normal. PELVIS, BLADDER, AND ABDOMINAL WALL:No abnormal masses. No free fluid. Bladder normal. BONES: No significant findings. OTHER: No other significant finding. IMPRESSION: NO SIGNIFICANT OR ACUTE PROCESS IN THE ABDOMEN OR PELVIS. COMMENT: Quality ID # [id number]: Final reports with documentation of one or more dose reduction techniques (e.g., Automated exposure control, adjustment of the mA and/or kV according to patient size, use of iterative reconstruction technique) TECHNICAL DOCUMENTATION: JOB ID: [id number] [employer]- All Rights Reserved Reading location - IP/workstation name: [email or web address]
[2018-03-28 22:13] VITALS: BP 120/62
== END 2018-03-28 22:13 | disposition home or self-care (01) ==
LOC: ER 19:33
DX: N12 Tubulo-interstitial nephritis, not specified as acute or chronic (principal); R10.9 Unspecified abdominal pain; R30.0 Dysuria; R35.0 Frequency of micturition
CPT/HCPCS: 36415; 76380; 81001; 81025; 87086; 87088; 87186; 99284